=== PATIENT | female | born 1945 | race Caucasian/White ===

== ENCOUNTER 2018-09-10 18:45 | Inpatient (IN) | payer OTHER ==
[~2018-09-10] VITALS: Ht 167.6 cm; Wt 108.9 kg
[2018-09-10 21:11] VITALS: BMI 10.6
[2018-09-10 22:00] VITALS: BP 126/58; PULSE 83; RESP 18
[2018-09-10] MEDS ORDERED: ONDANSETRON 4 MG INJ IV PRN (22:00)
[2018-09-10] MEDS ORDERED: ACETAMINOPHEN 325 MG TAB PO PRN (22:00)
[2018-09-11] VITALS (17 sets, daily range): BP systolic 105–141; BP diastolic 51–66; PULSE 20–95; RESP 11–24; Ht 167.6 cm; Wt 108.9 kg
[2018-09-11] MEDS: DEXTROSE 5%-0.45% NACL 1,000 ML IV SCH ×2 (02:20→12:04)
[2018-09-11] MEDS ORDERED: GLUCAGON 1 MG INJ ONE (07:00)
[2018-09-11] MEDS ORDERED: ACETAMINOPHEN 1000MG/100ML IV 100 ML IVPB STA (07:55)
--- NOTE | 2018-09-11 10:18 | QN ---
Documentation Comment Post cholecystectomy day #3 for acute cholecystitis with empyema of the ga llbladder Bile noted in TIA drain on postoperative day #1 HIDA scan showed intact biliary tree, but with delayed bile leak in the liver bed Patient is transferred here for ERCP She is symptomatically improved somewhat and her TIA drainage is diminishing and less bilious ELOISA SHAW MD Sep 11, 2018 10:18
--- NOTE | 2018-09-11 11:06 | HP ---
DATE OF ADMISSION: 09/10/2018 CHIEF COMPLAINT: Abdominal pain. HISTORY OF PRESENT ILLNESS: A 73-year-old female with a recent history of acute cholecystitis status post laparoscopic cholecystectomy on 09/08/2018 at [facility] returns to the hospital with comp laint of recurrent and persistent right upper quadrant abdominal pain. The TIA drain was still in viola ce. A HIDA scan was performed which showed evidence of bile leak and presence of bile underneath the liver. The patient is transferred to our facility in order to undergo ERCP. She spiked a temperatu re to 102.9 in the morning. PAST MEDICAL HISTORY: 1. History of acute cholecystitis. 2. Moderate obesity. 3. Hypertension. PAST SURGICAL HISTORY: Status post laparoscopic cholecystectomy on 09/08/2018. SOCIAL HISTORY: Patient lives at home. She denies tobacco or alcohol use. PHYSICAL EXAMINATION: GENERAL: Well-developed, well-nourished, obese female who is in mild distress. VITAL SIGNS: Blood pressure 131/60, pulse 80, respiration 18, temperature of 102.2, maximum temperat ure 102.9. HEENT: Extraocular muscles intact. Pupils are equal and reactive to light bilaterally. Sclerae are anicteric. Oropharynx is clear and moist. NECK: Supple, no JVD, no carotid bruits. LUNGS: Clear to auscultation bilaterally. CARDIAC: Regular rate and rhythm. No murmurs, rubs, gallops. ABDOMEN: Soft, obese, right upper quadrant and epigastric tenderness to palpation. TIA drain to cont inuous suction. EXTREMITIES: No clubbing, cyanosis, or edema. NEUROLOGICAL: Grossly nonfocal. ASSESSMENT: 1. A 73-year-old female status post laparoscopic cholecystectomy 2 days prior to admission. 2. Postoperative bile leak. 3. Moderate obesity. 4. Incomplete data. PLAN: 1. Admit to med/surg. 2. N.P.O. 3. Start IV Zosyn. 4. Check CBC and CMP. 5. Dr. Fernández was notified of this admission. 6. GI consultation was requested and case was discussed with Dr. Tovar. The patient will undergo E SECRETARY TO [employer]IONERS. Dictated By: NIMESH MACDONALD/CARRILLO Conf#: [id number] DID#: [id number] CC: DARRYL TOVAR;*EndCC*
[2018-09-11] MEDS: morphine 2 MG INJ IV PRN (12:04)
--- NOTE | 2018-09-11 13:09 | PREAC ---
Date/Time of Note Date/Time of Note DATE: 09/11/18 TIME: 13:07 Anesthesia Eval and Record Evaluation Time Pre-Procedure Interview DATE: 09/11/18 TIME: 13:07 Age 73 Sex female NPO: 8 hrs Preoperative diagnosis cholelithiasis s/p lap cholebile leak Planned procedure ERCP Past Medical History Past Medical History: Includes GI: Obesity Surgery & Anesthesia Issues No known issue Meds Anticoagulation: No Beta Demetrio within 24 hr: No Reason Beta Demetrio not given: Pt. not on B-Demetrio Current Medications Dextrose/Sodium Chloride 1,000 ml @ 75 mls/hr [id number] IV Last administered on 09/11/18at 12:04; Admin Dose 75 MLS/HR; Start 09/10/18 at 22:00 Morphine Sulfate (morphine) 2 mg Q3H PRN IV SEVERE PAIN LEVEL 7-10 Last administered on 09/11/18at 12:04; Admin Dose 2 MG; Start 09/10/18 at 22:00 Ondansetron HCl (Zofran Inj) 4 mg Q4H PRN IV NAUSEA AND/OR VOMITING; Start 09/10/18 at 22:00 Acetaminophen (Tylenol Tab) 650 mg Q4H PRN PO MILD PAIN(1-3)OR ELEVATED TEMP; Start 09/10/18 at 22:00 Piperacillin Sod/ Tazobactam Sod 100 ml @ 200 mls/hr Q8 IVPB ; Start 09/11/18 at 14:00 Meds reviewed: Yes Allergies Coded Allergies: codeine (Verified Allergy, Intermediate, Face edema and erythema, 09/10/18) Allergies Reviewed: Yes Labs/Studies Labs Reviewed: Reviewed by anesthesiologist Result Diagram: 09/11/18 1021 09/11/18 1021 Laboratory Tests 09/11/18 10:21 test: N/A Studies: ECG, CXR Pre-procedure Exam Last vitals Vital Signs Date Temp Pulse Resp B/P (MAP) Pulse Ox O2 O2 Flow FiO2 Time Delivery Rate 09/11/18 98.8 81 18 111/59 95 Room Air 12:52 (76) Airway: Adequate mouth opening Mallampati: Mallampati II Teeth: Normal Lung: Normal Heart: Normal ASA Physical Status ASA physical status: 2 Emergency: None Planned Anesthetic General/MAC: ETT Planned Pain Management Parenteral pain med Pre-operative Attestations Prior to commencing anesthesia and surgery, the patient was re-evaluated, there was verification of: *The patient's identity *The results of appropriate recent lab work and preoperative vital signs *The above evaluation not changing prior to induction *Anesthetic plan, risk benefits, alternative and complications discussed with patient/family; questions answered; patient/family understands, accepts and wishes to proceed. CHE DOMINGUEZ MD Sep 11, 2018 13:09
[2018-09-11] MEDS ORDERED: METOCLOPRAMIDE 10 MG INJ ONE (13:55)
[2018-09-11] MEDS ORDERED: PROPOFOL 20 ML ONE (13:55)
[2018-09-11] MEDS ORDERED: HYDROmorphONE 2 MG/ML SYG ONE (13:55)
[2018-09-11] MEDS ORDERED: ONDANSETRON 4 MG INJ ONE (13:55)
[2018-09-11] MEDS ORDERED: SUCCINYLCHOLINE CHLORIDE 100 MG/5 ML SYG IV ONE (13:55)
[2018-09-11] MEDS ORDERED: MIDAZOLAM 1 MG/ML 2 ML INJ ONE (13:56)
[2018-09-11] MEDS ORDERED: INDOMETHACIN 50 MG SUPP PR ONE (14:00)
[2018-09-11] MEDS: PIPER-TAZO 3.375 GM IV (PMX) 100 ML IVPB SCH ×2 (14:00→22:17)
[2018-09-11] MEDS ORDERED: EPHEDrine 25 MG/5 ML SYG ONE (14:17)
--- NOTE | 2018-09-11 15:25 | OPPN ---
Date/Time of Note Date/Time of Note DATE: 09/11/18 TIME: 15:19 Proc Note GI Procedure Date 09/11/18 Indication: diagnostic, treatment Pre-procedure Diagnosis Bile leak post cholecystectomy. Post-procedure Diagnosis Impression: Deep 1.5 cm duodenal ulcer (incidental finding) Bile leak from liver bed likely Luschka ducts No evidence of cystic stump leak Post sphincterotomy Post placement of [place] 10 9 cm stent Plan: Close observation. PPI therapy. Monitor liver function test. Procedure Performed: ERCP (Plus sphincterotomy plus stent placement) Surgeon DARRYL NG MD See signature line [employer] Contact Printer none Anesthesia Type: general Anesthesiologist: CHE DOMINGUEZ MD Tourniquet Time none EBL none Transfusion required none Biopsy 1: None Grafts/Implants none Tubes/Drains none Complication(s) none Disposition: PACU Procedure Description After informed consent, with the patient/relatives understanding the procedure, its indications, potential risks and complications, including but not limited to: allergic reaction, bleeding, perforation or infection, and after all pertinent questions were answered to the patients satisfaction, the patient/relatives signed witnessed informed consent. Following this, premedication was administered slowly IV push under careful cardiovascular and respiratory monitoring with pulse oximetry, automatic blood pressure, and child monitor. Once the sedative effect was achieved the patient was place in the prone position in the radiology special procedures suite; the side viewing panendoscope was introduced and advanced under visual control. Careful examination of the upper gastrointestinal tract, both on insertion as well as withdrawal of the instrument disclosed the following findings: Esophagus: The mucosa of the entire appears within normal limits. There is no evidence of esophagitis, varices, neoplasm or stricture. No Hiatal Hernia identified. Stomach: Upon entrance to the stomach air was insufflated, the gastric hairston dis tended normally, the mucosa of the fundus, body and antrum of the stomach was carefully examined both head-on and on retroflexion, and shows no abnormalities. There is no evidence of gastritis, ulcers, or neoplasm. Pylorus: The pylorus appears patent and within normal limits, with no evidence of gastric outlet obstruction. Duodenum: There is a 1.5 cm deep duodenal ulcer with no stigmata recent bleeding or visible vessel. The duodenal mucosa was carefully examined in the duodenal bulb as well as the second portion of the duodenum and appears unremarkable with no evidence of duodenitis, ulcer or neoplasm. Ampulla of vater: The ampulla of Vater was identified and carefully examined appearing within normal limits. Cannulation: At this point cannulation was accomplished with the following fluoroscopic findings: Pancreatogram: Normal pancreatogram Cholangiogram: Selective cannulation of the biliary tree was difficult requiring double wire technique. Eventually were successful. A balloon cholangiogram was performed with segmental evaluation. There appears to be a leak in the bed of the liver likely representing Luschka ducts leakage. The cystic stump appears sealed with no leakage. A standard sphincterotomy was performed and an [place] 10-9 cm stent was placed in the right intrahepatic area. Adequate drainage is present at the end of the procedure. The instrument was then withdrawn the patient tolerated the procedure well and was transfer out of the endoscopy suite awake, and in good condition to continue to recover under observation. Copies To: CC: DARRYL NG MD ; DARRYL NG MD Sep 11, 2018 15:25
[2018-09-11] MEDS ORDERED: HYDROmorphONE 1 MG/5 ML IV SYRINGE IV PRN ×3 (15:30)
[2018-09-11] MEDS ORDERED: MEPERIDINE 25 MG INJ IV PRN (15:30)
[2018-09-11] MEDS ORDERED: ONDANSETRON 4 MG INJ IV PRN (15:30)
[2018-09-11] MEDS ORDERED: FENTAnyl 50 MCG/ML VIAL IV PRN ×3 (15:30)
[2018-09-11] MEDS ORDERED: DIPHENHYDRAMINE 50 MG INJ IV PRN (15:30)
--- NOTE | 2018-09-11 15:34 | CONS ---
Assessment/Plan Assessment/Plan Assessment/Plan (Daily) Impression: Bile leak post laparoscopic cholecystectomy. Hypertension. Fever rule out infectious process. Plan: Urgent ERCP with biliary decompression. Consultation Date/Type/Reason Admit Date/Time Sep 10, 2018 at 20:39 Date of Consultation: Sep 11, 2018 Type of Consult Gastroenterology Reason for Consultation Bile leak Date/Time of Note DATE: 09/11/18 TIME: 13:27 Hx of Present Illness 73-year-old female transferred from [facility]. The patient had undergone laparoscopic cholecystectomy for gangrenous cholecystitis. The patient developed persistent pain and significant drainage from TIA drain. A HIDA scan was obtained that showed delayed leak at the bed of the liver. The patient spiked temperature 102.9 this morning. She continues to complain of significant right upper quadrant abdominal pain the area of the TIA drain appears erythemat ous and somewhat indurated suggesting cellulitis. At this point ERCP will be undertaken for diagnosis and therapeutic management with sphincterotomy and stent placement. The patient and her family were informed of the procedure the potential risk complications as well as alternatives and they are agreeable to proceed. Review of Systems: [A 12 system, review was conducted and is negative except as noted in the HPI or here.] Past Medical History Hypertension Medications Current Medications Dextrose/Sodium Chloride 1,000 ml @ 75 mls/hr [id number] IV Last administered on 09/11/18at 12:04; Admin Dose 75 MLS/HR; Start 09/10/18 at 22:00 Morphine Sulfate (morphine) 2 mg Q3H PRN IV SEVERE PAIN LEVEL 7-10 Last administered on 09/11/18at 12:04; Admin Dose 2 MG; Start 09/10/18 at 22:00 Ondansetron HCl (Zofran Inj) 4 mg Q4H PRN IV NAUSEA AND/OR VOMITING; Start 09/10/18 at 22:00 Acetaminophen (Tylenol Tab) 650 mg Q4H PRN PO MILD PAIN(1-3)OR ELEVATED TEMP; Start 09/10/18 at 22:00 Piperacillin Sod/ Tazobactam Sod 100 ml @ 200 mls/hr Q8 IVPB ; Start 09/11/18 at 14:00 Pantoprazole (Protonix Tab) 40 mg BID@06,18 PO ; Start 09/11/18 at 18:00; Status UNV Allergies: Coded Allergies: codeine (Verified Allergy, Intermediate, Face edema and erythema, 09/10/18) Past Surgical History Laparoscopic cholecystectomy 09/07/2018 Family History Significant Family History: no pertinent family hx Social History Alcohol Use: none Smoking Status: Former smoker Drug Use: none Exam/Review of Systems Exam Vitals Vital Signs Date Temp Pulse Resp B/P (MAP) Pulse Ox O2 O2 Flow FiO2 Time Delivery Rate 09/11/18 98.9 13:17 09/11/18 81 18 111/59 95 Room Air 12:52 (76) Intake and Output 09/10/18 09/10/18 09/11/18 1515:00 23:00 07:00 IntakeIntake Total 225 ml BalanceBalance 225 ml Exam PHYSICAL EXAMINATION: GENERAL: Well developed, well nourished, obese, alert & oriented x 3, in mild discomfort, no acute distress SKIN: Edema and induration in the right upper quadrant at site of TIA drain. Fluctuation to suggest abscess. No lesions, no stigmata chronic liver disease, no evidence of bleeding diathesis LYMPHATIC: No palpable lymphadenopathy. HEAD: Normocephalic, atraumatic, no tenderness. EYES: Pupils equal reactive to light and accommodation, full extraocular movements, sclera clear, non-icteric, no discharge. EARS/NOSE AND THROAT: Ears normal, nose normal, oropharynx normal, oral membranes well hydrated without lesions. NECK: Supple, no masses, thyroid normal, JVP within normal limits, carotids normal without bruits. CHEST: Inspection within normal limits. CARDIOVASCULAR: Heart: Regular rate and rhythm, no murmurs, gallops or rubs. Peripheral pulses present within normal limits, no cyanosis, clubbing or edemas. No pulsatile abdominal mass RESPIRATORY: Lungs clear to auscultation and percussion, no wheezing, no rubs GASTROINTESTINAL AND LIVER: Abdomen: Erythema and induration in the right upper quadrant at site of TIA drain. Soft, right upper quadrant tenderness, non- distended, no hernias, no masses, no organomegaly, no ascites, no guarding, no rebound tenderness, normoactive bowel sounds. Rectal: Deferred. GENITOURINARY: [Female genitalia within normal limits.] EXTREMITIES: No cyanosis, clubbing or edema. Results Result Diagram: 09/11/18 1021 09/11/18 1021 Results 24hrs Laboratory Tests Test 09/11/18 10:21 White Blood Count 8.2 Red Blood Count 3.61 L Hemoglobin 11.3 L Hematocrit 32.6 L Mean Corpuscular Volume 90.3 Mean Corpuscular Hemoglobin 31.3 Mean Corpuscular Hemoglobin Concent 34.7 Red Cell Distribution Width 13.2 Platelet Count 199 Mean Platelet Volume 10.2 Immature Granulocytes % 4.900 H Neutrophils % Segmented Neutrophils % (Manual) 47 Band Neutrophils % (Manual) 25 H Lymphocytes % Lymphocytes % (Manual) 13 L Monocytes % Monocytes % (Manual) 7 Eosinophils % Eosinophils % (Manual) 2 Basophils % Basophils % (Manual) 1 Metamyelocytes % (manual) 4 H Myelocytes % (Manual) 2 H Nucleated Red Blood Cells % 0.0 Immature Granulocytes # 0.400 H Neutrophils # Neutrophils # (Manual) 4.0 Band Neutrophils # 2.0 H Lymphocytes (Manual) 1.0 Lymphocytes # Monocytes # Monocytes # (Manual) 0.5 Eosinophils # Basophils # Basophils # (Manual) 0.0 Metamyelocytes # 0.3 H Myelocytes # 0.1 H Nucleated Red Blood Cells # Platelet Estimate NORMAL Giant Platelets 1 H Polychromasia 1+ Poikilocytosis 1+ Sodium Level 137 Potassium Level 3.7 Chloride Level 105 Carbon Dioxide Level 25 Anion Gap 7 Blood Urea Nitrogen 18 Creatinine 0.84 Est Glomerular Filtrat Rate mL/min Glucose Level 118 Calcium Level 7.0 L Total Bilirubin 0.6 Direct Bilirubin 0.00 Indirect Bilirubin 0.6 Aspartate Amino Transf (AST/SGOT) 41 Alanine Aminotransferase (ALT/SGPT) 31 Alkaline Phosphatase 95 Total Protein 4.6 L Albumin 2.3 L Globulin 2.30 Albumin/Globulin Ratio 1.00 Medications Medication Current Medications Dextrose/Sodium Chloride 1,000 ml @ 75 mls/hr [id number] IV Last administered on 09/11/18at 12:04; Admin Dose 75 MLS/HR; Start 09/10/18 at 22:00 Morphine Sulfate (morphine) 2 mg Q3H PRN IV SEVERE PAIN LEVEL 7-10 Last administered on 09/11/18at 12:04; Admin Dose 2 MG; Start 09/10/18 at 22:00 Ondansetron HCl (Zofran Inj) 4 mg Q4H PRN IV NAUSEA AND/OR VOMITING; Start 09/10/18 at 22:00 Acetaminophen (Tylenol Tab) 650 mg Q4H PRN PO MILD PAIN(1-3)OR ELEVATED TEMP; Start 09/10/18 at 22:00 Piperacillin Sod/ Tazobactam Sod 100 ml @ 200 mls/hr Q8 IVPB ; Start 09/11/18 at 14:00 Pantoprazole (Protonix Tab) 40 mg BID@06,18 PO ; Start 09/11/18 at 18:00; Status UNV DARRYL NG MD Sep 11, 2018 15:34
[2018-09-11] MEDS: PANTOPRAZOLE (EC) 40 MG TAB PO SCH (18:14)
[2018-09-12 02:00] VITALS: BP 108/55; PULSE 74; RESP 17
[2018-09-12] MEDS: morphine 2 MG INJ IV PRN ×2 (04:17→09:18)
[2018-09-12] MEDS: PIPER-TAZO 3.375 GM IV (PMX) 100 ML IVPB SCH ×3 (06:04→21:00)
[2018-09-12] MEDS: PANTOPRAZOLE (EC) 40 MG TAB PO SCH ×2 (06:05→17:18)
[2018-09-12] MEDS: DEXTROSE 5%-0.45% NACL 1,000 ML IV SCH ×3 (06:05→21:00)
[2018-09-12 08:00] VITALS: BP 110/59; PULSE 91; RESP 17
[2018-09-12] MEDS ORDERED: PIPE3.374 IVPB (08:42)
[2018-09-12] MEDS ORDERED: PANT40TA4 PO (08:42)
[2018-09-12] MEDS ORDERED: HYDR-4011 PO (08:42)
[2018-09-12] MEDS ORDERED: ACET325T33 PO (08:42)
--- NOTE | 2018-09-12 10:25 | PDOCDIS ---
Discharge Instructions CONDITION [id number] Patient Condition: [id number] Good HOME CARE INSTRUCTIONS: [id number] Diet Instructions: [id number] Regular ACTIVITY: [id number] Activity Restrictions: [id number] No Restrictions FOLLOW UP/APPOINTMENTS Follow-up Plan pcp [address] Tovar [address] Fernández 1 week NIMESH WRIGHT MD Sep 12, 2018 10:25
--- NOTE | 2018-09-12 10:44 | DS ---
DATE OF ADMISSION: 09/10/2018 DATE OF DISCHARGE: 09/12/2018 DISCHARGE DIAGNOSES: 1. A 73-year-old female status poles laparoscopic cholecystectomy, 2 days prior to admission. 2. Postoperative bile leak. 3. Status post ERCP followed by sphincterotomy and biliary stent placement. 4. Deep 1.5 cm duodenal ulcer. 5. Fibromyalgia. 6. Moderate obesity. HOSPITAL COURSE: A 73-year-old female status post laparoscopic cholecystectomy at [facility] on 09/08/2018, returned to the hospital with complaints of recurrent persistent right upper quadrant ab dominal pain. The patient was diagnosed with bile leak, evident on HIDA scan. She was transferred t o our facility. She was seen in consultation by Drs. Shaw and La. The patient underwent ERCP, sphincterotomy, and biliary stent placement, TIA drainage stopped. There was some erythema around th e TIA drain site. The patient was febrile during the initial phase of hospitalization. I started her on Zosyn. Incidentally, a 1.5 cm deep duodenal ulcer was identified during the procedure. The ronel ent was placed on Protonix 40 mg b.i.d. The case was discussed with Dr. Tovar and Dr. Shaw. The patient was cleared for discharge to halfway facility. MEDICATIONS ON DISCHARGE: 1. [place] 5/325 q.4h. p.r.n. 2. Protonix 40 mg b.i.d. 3. Zosyn 3.375 gram IV piggyback q.8h. x5 days. PLAN: 1. Follow up with PCP in 1 week. 2. Follow up with Dr. Tovar. 3. Follow up with Dr. Shaw; call for appointment. Dictated By: NIMESH MACDONALD/NTS Conf#: [id number] DID#: [id number] CC: DARRYL TOVAR; ELOISA SHAW MD;*End*
[2018-09-12 14:00] VITALS: BP 123/60; PULSE 94; RESP 18
[2018-09-12] MEDS: HYDROCODONE/APAP (5/325) TAB PO PRN ×2 (15:13→21:01)
[2018-09-12 19:38] VITALS: BP 113/56; PULSE 84; RESP 20
--- NOTE | 2018-09-12 20:24 | PAC ---
Date/Time of Note Date/Time of Note DATE: 09/12/18 TIME: 23:23 Post-Anesthesia Notes Post-Anesthesia Note Last documented vital signs Vital Signs Date Temp Pulse Resp B/P (MAP) Pulse Ox O2 O2 Flow FiO2 Time Delivery Rate 09/12/18 98.8 15:59 09/12/18 98.8 94 18 123/60 93 Room Air 14:00 (81) 09/11/18 2.0 16:29 Activity: WNL Respiratory function: WNL Cardiovascular function: WNL Mental status: Baseline Pain reasonably controlled: Yes Hydration appropriate: Yes Nausea/Vomiting absent: No CHE DOMINGUEZ MD Sep 12, 2018 20:24
[2018-09-13 02:07] VITALS: BP 115/54; PULSE 75; RESP 18
[2018-09-13] MEDS: HYDROCODONE/APAP (5/325) TAB PO PRN ×3 (02:46→17:03)
[2018-09-13] MEDS: PIPER-TAZO 3.375 GM IV (PMX) 100 ML IVPB SCH ×2 (05:38→13:26)
[2018-09-13] MEDS: PANTOPRAZOLE (EC) 40 MG TAB PO SCH ×2 (05:38→17:03)
[2018-09-13 08:00] VITALS: BP 128/67; PULSE 90; RESP 18
--- NOTE | 2018-09-13 09:36 | QN ---
Documentation Comment Postoperative day #3 No further bleeding through drain site H&H stable x24 hours Cleared for discharge from surgical standpoint. Discharge when cleared by medicine ELOISA SHAW MD Sep 13, 2018 09:36
--- NOTE | 2018-09-13 09:37 | QN ---
Documentation Comment Afebrile for 24 hours Minimal bilious TIA drainage TIA drain removed Slight erythema surrounding TIA entry site Plan: Continue IV antibiotics. Continues warm wet dressing. Should be able to discharge later today. ELOISA SHAW MD Sep 13, 2018 09:37
[2018-09-13] MEDS: DEXTROSE 5%-0.45% NACL 1,000 ML IV SCH (12:09)
[2018-09-13] MEDS ORDERED: BISACODYL 10 MG SUPP PR PRN (13:30)
[2018-09-13] MEDS ORDERED: LACTULOSE 30ML CUP PO PRN (13:30)
[2018-09-13 14:12] VITALS: BP 120/58; PULSE 91; RESP 17
== END 2018-09-13 17:56 | DRG 921 ==
LOC: PP2 20:39
PROVIDERS: ADMIT Internal Medicine; ATTEND Internal Medicine
PROC: 0F758DZ Dilation of Right Hepatic Duct with Intraluminal Device, Via Natural or Artificial Opening Endoscopic (ICD-10-PCS; principal; 2018-09-11 13:30)
DX: T85.590A Other mechanical complication of bile duct prosthesis, initial encounter (principal); M79.7 Fibromyalgia; E66.9 Obesity, unspecified; Z68.38 Body mass index [BMI] 38.0-38.9, adult; Y84.8 Other medical procedures as the cause of abnormal reaction of the patient, or of later complication, without mention of misadventure at the time of the procedure; Y92.019 Unspecified place in single-family (private) house as the place of occurrence of the external cause; Z90.49 Acquired absence of other specified parts of digestive tract; Z87.891 Personal history of nicotine dependence
CPT/HCPCS: 74330; 80053; 80076; 85025; C2617; J0131; J1170; J1610; J2250; J2270; J2405; J2543; J2765; J7042

== ENCOUNTER 2018-09-20 16:26 | Inpatient (IN) | payer OTHER ==
[~2018-09-20] VITALS: Ht 167.6 cm; Wt 111.8 kg
[~2018-09-20 16:26] MED LIST: ACET325T33 PO; HYDR-4011 PO; PANT40TA4 PO; PIPE3.374 IVPB
[2018-09-20] MEDS ORDERED: VANCOMYCIN 1 GM (PMX) 250 ML IVPB STA (16:49)
[2018-09-20] MEDS ORDERED: SODIUM CHLORIDE 0.9% 1L BAG IV* STA (16:49)
[2018-09-20] MEDS ORDERED: PIPER-TAZO 3.375 GM IV (PMX) 100 ML IVPB STA (16:49)
--- NOTE | 2018-09-20 17:07 | ERD ---
ER Documentation Chief Complaint Chief Complaint PT SENT BY PMD FOR EVAL ON ABNORMAL CT, RECENT LAP LIZZIE AUGUST 2018 HPI This is a 73-year-old female who presents to the emergency department brought in by EMS from [facility]. The patient is postop day 10 after undergoing a cholecystectomy for acute cholecystitis with empyema of the gallbladder. The patient had the surgery performed at [facility] by Dr. Fernández. The patient also during her surgery had a TIA drain that was placed and subsequently removed prior to discharge 7 days ago. After cholecystectomy the patient had a suspected bile leak as well has been seen in the TIA drain. Therefore an ERCP was performed by Dr. Karlie avila. The patient had sphincterotomy with stent placement as there appeared to be a leak in the bed of the liver likely representing Luschka ducts leakage. During the procedure the cystic stump appeared sealed with no leakage. A standard sphincterotomy had been performed and a Romanian 10 9 cm stent had been placed into the right intrahepatic area. For the past 48 hours the patient has been complaining of severe abdominal pain. She has remained afebrile. The patient had an outpatient CT scan perf [facility] today at 230 this afternoon roughly 2 hours prior to arrival. This was ordered by the [facility] physicians. The patient was found to have an abnormal finding and subsequently was sent immediately to the emergency department to be further evaluated. The patient states that the abdominal pain is more prominent in the right lower quadrant around the surgical site. The patient states she has had no fever shaking or chills. The abdominal pain is persistent. Is exacerbated with movement. She had a decrease in appetite. She denies any shortness of breath at rest or exertion. She has no chest pain or pressure. ROS All systems reviewed and are negative except as per history of present illness. Medications Home Meds Reported Medications Tuberculin,Purif.prot.deriv. (Tubersol) 5 Tub Unit/0.1 Ml Vial, 5 TUB ID ONCE, VIAL START DATE 09/26/18 AND END DATE 09/26/18 09/20/18 Acetaminophen* (Tylenol*) 325 Mg Tablet, 650 MG PO Q4H PRN for PAIN LEVEL 4- 6/10, TAB 09/20/18 Qriukbwcbocx-Kmgg-Egcpynjv,Iso (ZOSYN* 4.5 GM GALAXY BAG) 4.5 Gm/100 Ml Froz.piggy, 4.5 GM IVPB Q6, EA START DATE 09/16/18 END DATE 09/23/18 09/20/18 Ondansetron Hcl* (Zofran*) 4 Mg Tab, 4 MG PO Q4H PRN for NAUSEA AND OR VOMITING, TAB 09/20/18 Simethicone* (Mylicon*) 80 Mg Tab, 80 MG PO Q4H PRN for DISTENSION/GAS/BLOATING, TAB 09/20/18 Protein Supplement (Promod) 946 Ml Liquid, 30 ML PO TID 09/20/18 Pantoprazole* (Pantoprazole*) 40 Mg Tablet., 40 MG PO AC BREAKFAST DINNER, TAB 09/20/18 Hydrocodone/Acetaminophen ([place] 5-325 Tablet) 1 Each Tablet, 1 EACH PO Q4H PRN for PAIN LEVEL -12/22, TAB 09/20/18 Multivitamin with Minerals (Multivitamins with Minerals) 1 Each Tablet, 1 EACH PO DAILY, TAB 09/20/18 Enoxaparin Sodium* (Lovenox*) 30 Mg/0.3 Ml Disp.syrin, 30 MG SQ BID, SYR 09/20/18 Sodium Phosphate,Griggs-Dibasic (Enema Ready To Use) Unknown Strength Enema, 118 ML RC Q72H, ENEMA 09/20/18 Bisacodyl (Dulcolax) 10 Mg Supp.rect, 10 MG RC Q24H, SUPP.RECT 09/20/18 Magnesium Hydroxide* (Milk Of Magnesia*) 400 Mg/5 Ml Oral.susp, 30 ML PO Q24H for CONSTIPATION, ML 09/20/18 Discontinued Scripts Hydrocodone/Acetaminophen ([place] 5-325 Tablet) 1 Each Tablet, 1 EACH PO Q4 for 5 Days, TAB Prov:NIMESH WRIGHT MD 09/12/18 Pantoprazole* (Pantoprazole*) 40 Mg Tablet., 40 MG PO BID@06,18 for 60 Days Prov:NIMESH WRIGHT MD 09/12/18 Acetaminophen* (Tylenol*) 325 Mg Tablet, 650 MG PO Q4H PRN for MILD PAIN(1-3)OR ELEVATED TEMP for 10 Days, TAB Prov:NIMESH WRIGHT MD 09/12/18 Gstytmfupnoq-Xjaz-Ddcnfodw,Iso (ZOSYN 3.375 GM GALAXY BAG) 3.375 Gm/50 Ml Froz. piggy, 3.375 GM IVPB Q8 for 5 Days, EA Prov:NIMESH WRIGHT MD 09/12/18 Allergies Allergies: Coded Allergies: codeine (Verified Allergy, Intermediate, Face edema and erythema, 09/20/18) PMhx/Soc History of Surgery: Yes (cholecystectomy, appendectomy, eye surgery) Anesthesia Reaction: No Hx Neurological Disorder: Yes (neuropathy) Hx Respiratory Disorders: Yes (pneumonia) Hx Cardiac Disorders: No Hx Psychiatric Problems: Yes (depression) Hx Miscellaneous Medical Probl: No Hx Alcohol Use: Yes (socially) Hx Substance Use: No Hx Tobacco Use: No Physical Exam Vitals Vital Signs Date Temp Pulse Resp B/P (MAP) Pulse Ox O2 O2 Flow FiO2 Time Delivery Rate 09/20/18 99.7 81 18 96/63 (74) 100 Room Air 17:36 09/20/18 Nasal 2 17:20 Cannula 09/20/18 99.7 87 18 96/63 (74) 96 16:52 Physical Exam Constitutional:Well-developed. Well-nourished. HEENT:Normocephalic. Atraumatic.Pupils were equal round reactive to light.. Dry mucous membranes. Very poor oral dentitionNo tonsillar exudates. Neck: No nuchal rigidity. No lymphadenopathy. No posterior cervical spine t enderness or step-offs. Respiratory: Not using accessory muscles of respiration.Lungs were clear to auscultation bilaterally. No rhonchi. No rales. No wheezing. Cardiovascular: Regular rate regular rhythm.No murmurs. No rubs were appreciated.S1, S2 normal. Distal pulses are palpable 2+ bilaterally. GI: Abdomen was obese. Bowel sounds normal. Erythremia warmth and tenderness extending from the right upper quadrant ostomy site to the right lower quadrant and no involvement of the flank region region. No subcutaneous emphysema, no fluctuance, no induration. Significant purulent drainage coming from the right upper quadrant operative site or previous TIA drain had been removed. Surgical ji present below the sternum, above the umbilicus and to the left of the right upper quadrant ostomy site. All surgical ji were clean dry and intact with no surrounding erythremia. Muscle skeletal: No asymmetrical calf tenderness or swelling. Muscular strength 2 out of 5 of the lower and upper extremities. Skin: No petechia, no purpura. No lesions on the palms or the soles of the feet. No maculopapular rash. NEURO: Patient was alert, awake, orientated x3. Gait not observed Result Diagram: 09/20/18 1716 09/20/18 1716 Results 24 hrs Laboratory Tests Test 09/20/18 17:06 09/20/18 17:16 POC Venous Lactate 1.2 mmol/L White Blood Count 11.8 10^3/ul Red Blood Count 2.94 10^6/ul Hemoglobin 9.3 g/dl Hematocrit 27.4 % Mean Corpuscular Volume 93.2 fl Mean Corpuscular Hemoglobin 31.6 pg Mean Corpuscular Hemoglobin Concent 33.9 g/dl Red Cell Distribution Width 14.1 % Platelet Count 380 10^3/UL Mean Platelet Volume 9.8 fl Immature Granulocytes % 5.200 % Neutrophils % % Segmented Neutrophils % (Manual) 67 % Band Neutrophils % (Manual) 13 % Lymphocytes % % Lymphocytes % (Manual) 8 % Monocytes % % Monocytes % (Manual) 4 % Eosinophils % % Basophils % % Basophils % (Manual) 1 % Metamyelocytes % (manual) 3 % Myelocytes % (Manual) 4 % Nucleated Red Blood Cells % 0.2 /100WBC Immature Granulocytes # 0.610 10^3/ul Neutrophils # 10^3/ul Neutrophils # (Manual) 8.1 10^3/ul Band Neutrophils # 1.5 10^3/ul Lymphocytes (Manual) 0.9 10^3/ul Lymphocytes # 10^3/ul Monocytes # 10^3/ul Monocytes # (Manual) 0.4 10^3/ul Eosinophils # 10^3/ul Basophils # 10^3/ul Basophils # (Manual) 0.1 10^3/ul Metamyelocytes # 0.3 10^3/ul Myelocytes # 0.4 10^3/ul Nucleated Red Blood Cells # 10^3/ul Platelet Estimate NORMAL Giant Platelets 1 % Polychromasia 1+ Poikilocytosis 1+ Prothrombin Time 17.5 Sec Prothrombin Time Ratio 1.4 INR International Normalized Ratio 1.42 Activated Partial Thromboplast Time 37.0 Sec Sodium Level 138 mmol/L Potassium Level 3.1 mmol/L Chloride Level 106 mmol/L Carbon Dioxide Level 25 mmol/L Anion Gap 7 Blood Urea Nitrogen 18 mg/dl Creatinine 0.79 mg/dl Est Glomerular Filtrat Rate mL/min mL/min Glucose Level 119 mg/dl Calcium Level 7.9 mg/dl Total Bilirubin 0.4 mg/dl Direct Bilirubin 0.00 mg/dl Indirect Bilirubin 0.4 mg/dl Aspartate Amino Transf (AST/SGOT) 81 IU/L Alanine Aminotransferase (ALT/SGPT) 56 IU/L Alkaline Phosphatase 149 IU/L Troponin I < 0.012 ng/ml Total Protein 5.9 g/dl Albumin 2.6 g/dl Globulin 3.30 g/dl Albumin/Globulin Ratio 0.78 Amylase Level 93 U/L Lipase 254 U/L Current Medications Medications Dose Sig/Valentina Start Time Status Last (Trade) Ordered Route PRN Stop Time Admin Dose Reason Admin Sodium 3,000 ml BOLUS OVER 2 09/20/18 DC 09/20/18 Chloride HOURS STAT 16:49 09/20/18 17:15 (NS) IV* 16:51 Vancomycin 250 ml @ ONCE STAT 09/20/18 DC 09/20/18 HCl 125 mls/hr IVPB 16:49 09/20/18 17:50 18:48 Piperacillin 100 ml @ ONCE STAT 09/20/18 DC 09/20/18 Sod/ 200 mls/hr IVPB 16:49 09/20/18 17:15 Tazobactam 17:18 Sod Ondansetron 4 mg ER BRIDGE 09/20/18 HCl (Zofran PRN IV 18:30 Inj) NAUSEA/VOMITI 09/21/18 18:29 NG 650 mg ER BRIDGE 09/20/18 Acetaminophen PRN PO 18:30 (Tylenol .MILD PAIN 09/21/18 18:29 Tab) 1-3 OR TEMP 1,000 ml @ Q10H IV 09/20/18 UNV Dextrose/Sodi 100 mls/hr 18:30 um Chloride Piperacillin 100 ml @ Q8 IVPB 09/20/18 UNV Sod/ 200 mls/hr 22:00 Tazobactam Sod Vancomycin VANCOMYCIN PER 09/20/18 UNV HCl (Vanco PER PHARMACY PROTOCOL XX 18:30 Iv Per Pharmacy) Ondansetron 4 mg Q4 PRN IV 09/20/18 UNV HCl (Zofran nausea 18:30 Inj) Morphine 2 mg Q3 PRN IV 09/20/18 UNV Sulfate mod pain 18:30 (morphine) IV Flush 10 ml STK-MED 09/20/18 DC (NS 10 ml) ONCE .ROUTE 18:29 09/20/18 18:30 Sodium 100 ml @ ud STK-MED 09/20/18 DC Chloride ONCE .ROUTE 18:29 09/20/18 18:30 Iohexol 150 ml STK-MED 09/20/18 DC (Omnipaque ONCE .ROUTE 18:29 09/20/18 300mg/ ml) 18:30 Fentanyl 50 mcg ONCE ONCE 09/20/18 DC 09/20/18 (Sublimaze) IV 19:00 09/20/18 18:54 19:01 Procedures/MDM This is a 73-year-old female presented to the emergency department postop day 10 status post cholecystectomy and ERCP. The patient had a significant amount of purulent drainage coming from the ostomy site which appeared to be a postoperative infection as the surrounding skin of the abdomen was also showing signs of cellulitis. The patient immediately was placed in a ship painter helper continuous pulse oximetry and IV access was established by nursing staff. The patient did not have sirs criteria but I was concerned for high risk of sepsis and therefore obtained a lactic acid blood cultures and immediately started the patient on antibiotics which included vancomycin and Zosyn. 12 Lead EKG tracing ordered and reviewed by myself showed: Normal sinus rhythm of 86 bpm and no arrhythmia. ME interval normal. QRS duration normal. No ST segment elevation No ST segment depression. No changes consistent with acute ischemia. I was able to speak with the surgeon Dr. Fernández. CT scan was not repeated at this time given that he had [place] received a report from the radiologist. There was concern of a postoperative infection. The patient had mild leukocytosis. There is no evidence of sepsis. Pain was controlled with IV fentanyl. The patient had no changes in her mental status. At this time the patient will be started on IV antibiotics as stated above. She was made n.p.o. She will be admitted to the renal physician Dr. Wright to undergo further surgical evaluation. Critical Care: Time: 80 minutes Treatments/Evaluations: Close monitoring and treatment of unstable vital signs, cardiorespiratory, and neurologic status, while maintaining tight balance of fluid, respiratory, and cardiac interventions. Time does not include performing any of the above billable procedures. Departure Diagnosis: Primary Impression: Postoperative intra-abdominal abscess Condition: Serious MALKA MOLINA MD 9, 2019 17:07
[2018-09-20] MEDS ORDERED: BISA10SU55 RC (17:27)
[2018-09-20] MEDS ORDERED: MAGN400O19 PO (17:27)
[2018-09-20] MEDS ORDERED: NA P133E39 RC (17:28)
[2018-09-20] MEDS ORDERED: ENOX30DI10 SQ (17:28)
[2018-09-20] MEDS ORDERED: MULT-105 PO (17:29)
[2018-09-20] MEDS ORDERED: HYDR-4011 PO (17:30)
[2018-09-20] MEDS ORDERED: PANT40TA4 PO (17:30)
[2018-09-20] MEDS ORDERED: PROT946L PO (17:31)
[2018-09-20] MEDS ORDERED: ONDA4TAB13 PO (17:32)
[2018-09-20] MEDS ORDERED: SIME80TA60 PO (17:32)
[2018-09-20] MEDS ORDERED: PIPE4.5F2 IVPB (17:35)
[2018-09-20] MEDS ORDERED: ACET325T33 PO (17:36)
[2018-09-20] MEDS ORDERED: TUBE5VIA3 ID (17:37)
[2018-09-20] MEDS ORDERED: IOHEXOL 300MG/ML 150 ML BTL ONE (18:29)
[2018-09-20] MEDS ORDERED: SOD CHLORIDE 0.9% 100 ML ONE (18:29)
[2018-09-20] MEDS ORDERED: ACETAMINOPHEN 325 MG TAB PO PRN (18:30)
[2018-09-20] MEDS ORDERED: ONDANSETRON 4 MG INJ IV PRN ×2 (18:30)
[2018-09-20] MEDS ORDERED: morphine 2 MG INJ IV PRN (18:30)
[2018-09-20] MEDS ORDERED: VANCOMYCIN IV PER PHARMACY XX SCH (18:30)
[2018-09-20] MEDS ORDERED: FENTAnyl 50 MCG/ML VIAL IV ONE ×2 (19:00→21:30)
[2018-09-20 22:10] VITALS: BP 127/60; PULSE 83; RESP 18
[2018-09-20] MEDS ORDERED: VANCOMYCIN 1 GM 250 ML IVPB SCH (23:30)
[2018-09-20] MEDS: PIPER-TAZO 3.375 GM IV (PMX) 100 ML IVPB SCH (23:43)
[2018-09-21 00:03] VITALS: BP 140/63; PULSE 83; RESP 19
[2018-09-21 00:28] VITALS: Ht 167.6 cm; Wt 111.8 kg
[2018-09-21 02:00] VITALS: BP 137/60; PULSE 91; RESP 18
[2018-09-21] MEDS: POTASSIUM CHLORIDE 30 MEQ in DEXTROSE 5%-0.9% NACL 1,000 ML IV SCH ×3 (02:23→13:27)
[2018-09-21] MEDS: PIPER-TAZO 3.375 GM IV (PMX) 100 ML IVPB SCH ×3 (06:22→20:25)
[2018-09-21 08:08] VITALS: BP 126/59; PULSE 84; RESP 19
[2018-09-21 11:37] VITALS: BP 147/67; PULSE 92; RESP 18
--- NOTE | 2018-09-21 11:49 | HP ---
DATE OF ADMISSION: 09/20/2018 CHIEF COMPLAINT: Right-sided abdominal pain. HISTORY OF PRESENT ILLNESS: A 73-year-old moderately obese female, status post laparoscopic cholecys tectomy more than 10 days prior to admission, followed by bile leak and biliary stent placement, was transferred to [facility] following ERCP. The patient developed a righ t-sided abdominal pain. The TIA drain had remained in place and removed 7 days prior to discharge. T he patient reported persistent right-sided abdominal pain. CAT scan of the abdomen and pelvis showed necrotizing abscess collection along the abdominal wall. The patient reports persistent right-sided abdominal pain and no fevers or chills. No nausea or vomiting. Dr. Shaw was notified of this adm ission. PAST MEDICAL HISTORY: 1. History of acute cholecystitis. 2. History of postoperative bile leak. 3. Status post ERCP and biliary stent placement. MEDICATIONS PRIOR TO ADMISSION: 1. Tylenol. 2. Zosyn. 3. Zofran. 4. Protonix. 5. [place]. 6. Lovenox. ALLERGIES: THE PATIENT IS ALLERGIC TO CODEINE. PAST SURGICAL HISTORY: Status post cholecystectomy 10 days prior to admission and status post append ectomy. SOCIAL HISTORY: The patient was residing at [facility] prior to admiss ion. She denies tobacco or alcohol use. PHYSICAL EXAMINATION: GENERAL: Well-developed, well-nourished, obese female, who is in no apparent distress. VITAL SIGNS: Stable. She is afebrile. HEENT: Extraocular muscles intact. Pupils are equal and reactive to light bilaterally. Sclerae are anicteric. Oropharynx is clear and moist. NECK: Supple, no JVD, no carotid bruits. LUNGS: Decreased breath sounds at bases. CARDIAC: Regular rate and rhythm. No murmurs, rubs or gallops. ABDOMEN: Soft, right-sided tenderness. There is erythema involving the right upper quadrant. Surgi rashad ji present below the rib on the right side. EXTREMITIES: No clubbing, cyanosis, or edema. NEUROLOGICAL: Grossly nonfocal. LABORATORY DATA: White blood cell count 9000, hemoglobin 9.1, platelet count 363,000. Sodium 141, p otassium 3.2, chloride 112, bicarbonate 23, BUN 13, creatinine 0.64. Total bilirubin is 0.3, AST 68, ALT 60, alkaline phosphatase 121, albumin is reduced at 2. ASSESSMENT: 1. A 73-year-old female with a right-sided intra-abdominal abscess collection. 2. Status post laparoscopic cholecystectomy 10 days prior to admission. 3. History of postoperative bile leakage, status post ERCP and biliary stent placement. 4. Malnutrition of severe degree. 5. Hypokalemia. PLAN: 1. Admit to med/surg, keep the patient n.p.o., Continue IV Zosyn and vancomycin. 2. Wound culture. 3. IV fluid hydration. 4. Pain control. 5. Dr. Shaw and Dr. Tovar were notified of this admission. Dictated By: NIMESH WRIGHT MD SK/NTS Conf#: [id number] DID#: [id number] CC: ELOISA SHAW MD; DARRYL TOVAR;*End*
[2018-09-21] MEDS: VANCOMYCIN 1 GM 250 ML IVPB SCH ×2 (12:34→23:20)
[2018-09-21] MEDS: KETOROLAC 15 MG INJ IV PRN ×2 (12:38→23:20)
[2018-09-21 15:18] VITALS: BP 143/65; RESP 18
--- NOTE | 2018-09-21 16:57 | CONS ---
Assessment/Plan Assessment/Plan Assessment/Plan (Daily) We will further assess the right upper quadrant with an MRCP Since main problem with inability to eat with facial and oral rash will need to be addressed Consultation Date/Type/Reason Admit Date/Time Sep 20, 2018 at 18:09 Initial Consult Date Type of Consult General surgery Reason for Consultation Bile leak status post cholecystectomy Date/Time of Note DATE: 09/21/18 TIME: 16:51 24 HR Interval Summary Free Text/Dictation Patient is-year-old female who is over 10 days status post laparoscopic cholecystectomy for acute cholecystitis with empyema. On the first postoperative day she was noted to have biliary drainage through the TIA drain. She was transferred to [facility] were on the second postoperative day patient underwent an ERCP with stent placement. She was found to have some biliary drainage in the liver bed. Her TIA drainage diminished dramatically and was able to be removed prior to discharge. As an outpatient over the last week the patient has been unable to eat and is developed sores on her face and mouth. Also she has developed tenderness in the right upper quadrant. An outpatient CT yesterday suggested cellulitis and possible fasciitis of the right upper quadrant. She has been afebrile and has had no abdominal pain since admission. Her mild leukocytosis has resolved. Her main complaint at the present time is the oral rash which has been eating for the patient and possible over the Constitutional: other (As in the HPI) Exam/Review of Systems Exam Vitals Vital Signs Date Temp Pulse Resp B/P (MAP) Pulse Ox O2 O2 Flow FiO2 Time Delivery Rate 09/21/18 98.1 18 143/65 92 15:18 (91) 09/21/18 92 11:37 09/20/18 Room Air 21:29 09/20/18 2 17:20 Intake and Output 09/20/18 09/20/18 09/21/18 1515:00 23:00 07:00 IntakeIntake Total 0 ml BalanceBalance 0 ml Constitutional: alert, oriented Psych: no complaints Eyes: nl conjunctiva ENMT: nl external ears & nose, other (There is a facial rash which is non- erythematous occupying her left face there is a rash occupying the gums above and below) Neck: supple Respiratory: clear to auscultation Cardiovascular: regular rate and rhythm Gastrointestinal: soft, other (There is a minimal area of erythema in the right upper quadrant with slight bilious drainage. It is markedly improved since previous examination) Musculoskeletal: nl extremities to inspection Extremities: normal pulses Neurological: ISOTOPE HYDROLOGIST II-XII intact Results Result Diagram: 09/21/18 0559 09/21/18 0559 Results 24hrs Laboratory Tests Test 09/20/18 17:06 09/20/18 17:16 09/20/18 19:38 09/20/18 20:50 POC Venous Lactate 1.2 White Blood Count 11.8 #H Red Blood Count 2.94 L Hemoglobin 9.3 L Hematocrit 27.4 L Mean Corpuscular Volume 93.2 Mean Corpuscular 31.6 Hemoglobin Mean Corpuscular 33.9 Hemoglobin Concent Red Cell Distribution 14.1 Width Platelet Count 380 # Mean Platelet Volume 9.8 Immature Granulocytes % 5.200 H Neutrophils % Segmented Neutrophils 67 % (Manual) Band Neutrophils % 13 H (Manual) Lymphocytes % Lymphocytes % (Manual) 8 L Monocytes % Monocytes % (Manual) 4 Eosinophils % Basophils % Basophils % (Manual) 1 Metamyelocytes % 3 H (manual) Myelocytes % (Manual) 4 H Nucleated Red Blood 0.2 H Cells % Immature Granulocytes # 0.610 H Neutrophils # Neutrophils # (Manual) 8.1 H Band Neutrophils # 1.5 H Lymphocytes (Manual) 0.9 Lymphocytes # Monocytes # Monocytes # (Manual) 0.4 Eosinophils # Basophils # Basophils # (Manual) 0.1 H Metamyelocytes # 0.3 H Myelocytes # 0.4 H Nucleated Red Blood Cells # Platelet Estimate NORMAL Giant Platelets 1 H Polychromasia 1+ Poikilocytosis 1+ Prothrombin Time 17.5 H Prothrombin Time Ratio 1.4 INR International 1.42 Normalized Ratio Activated 37.0 H Partial Thromboplast Time Sodium Level 138 Potassium Level 3.1 L Chloride Level 106 Carbon Dioxide Level 25 Anion Gap 7 Blood Urea Nitrogen 18 Creatinine 0.79 Est Glomerular Filtrat Rate mL/min Glucose Level 119 Calcium Level 7.9 L Total Bilirubin 0.4 Direct Bilirubin 0.00 Indirect Bilirubin 0.4 Aspartate Amino 81 H Transf (AST/SGOT) Alanine 56 Aminotransferase (ALT/S GPT) Alkaline Phosphatase 149 H Troponin I < 0.012 Total Protein 5.9 L Albumin 2.6 L Globulin 3.30 H Albumin/Globulin Ratio 0.78 Amylase Level 93 Lipase 254 Lactic Acid Level 1.1 1.2 Test 09/21/18 05:59 White Blood Count 9.0 # Red Blood Count 2.90 L Hemoglobin 9.1 L Hematocrit 27.1 L Mean Corpuscular Volume 93.4 Mean Corpuscular 31.4 Hemoglobin Mean Corpuscular 33.6 Hemoglobin Concent Red Cell Distribution 14.1 Width Platelet Count 363 Mean Platelet Volume 9.6 Immature Granulocytes % 5.500 H Neutrophils % Segmented Neutrophils 48 % (Manual) Band Neutrophils % 32 H (Manual) Lymphocytes % Lymphocytes % (Manual) 15 Monocytes % Monocytes % (Manual) 2 Eosinophils % Basophils % Basophils % (Manual) 1 Myelocytes % (Manual) 1 H Promyelocytes % 1 H (Manual) Nucleated Red Blood 0.0 Cells % Immature Granulocytes # 0.500 H Neutrophils # Neutrophils # (Manual) 4.6 Band Neutrophils # 2.8 H Lymphocytes (Manual) 1.3 Lymphocytes # Monocytes # Monocytes # (Manual) 0.1 L Eosinophils # Basophils # Basophils # (Manual) 0.0 Myelocytes # 0.0 Promyelocytes # 0.0 Nucleated Red Blood Cells # Platelet Estimate NORMAL Sodium Level 141 Potassium Level 3.2 L Chloride Level 112 H Carbon Dioxide Level 23 Anion Gap 6 Blood Urea Nitrogen 13 Creatinine 0.64 Est Glomerular Filtrat Rate mL/min Glucose Level 108 Calcium Level 7.3 L Total Bilirubin 0.3 Direct Bilirubin 0.00 Indirect Bilirubin 0.3 Aspartate Amino 68 H Transf (AST/SGOT) Alanine 60 Aminotransferase (ALT/S GPT) Alkaline Phosphatase 121 Total Protein 4.7 #L Albumin 2.0 L Medications Medication Current Medications Potassium Chloride 30 meq/ Dextrose/Sodium Chloride 1,015 ml @ 100 mls/hr Q10H9M IV Last administered on 09/21/18at 13:27; Admin Dose 100 MLS/HR; Start 09/20/18 at 22:00 Piperacillin Sod/ Tazobactam Sod 100 ml @ 200 mls/hr Q8 IVPB Last administered on 09/21/18at 14:05; Admin Dose 200 MLS/HR; Start 09/20/18 at 23:30 Vancomycin HCl (Vanco Iv Per Pharmacy) VANCOMYCIN PER PHARMACY PER PROTOCOL XX ; Start 09/20/18 at 18:30 Ondansetron HCl (Zofran Inj) 4 mg Q4H PRN IV nausea; Start 09/20/18 at 18:30 Vancomycin HCl 250 ml @ 125 mls/hr Q12H IVPB Last administered on 09/21/18at 12:34; Admin Dose 125 MLS/HR; Start 09/21/18 at 12:00 Ketorolac Tromethamine (Toradol) 15 mg Q6H PRN IV PAIN Last administered on 09/21/18at 12:38; Admin Dose 15 MG; Start 09/21/18 at 11:30; Stop 09/24/18 at 11:29 Miscellaneous Information (*Rx Drug Level Order Reminder*) VANCO TROUGH @ 1,100 ON... 1100 ONCE XX ; Start 09/22/18 at 11:00; Stop 09/22/18 at 11:01 ELOISA SHAW MD Sep 21, 2018 16:57
[2018-09-21 20:12] VITALS: BP 180/79; PULSE 91; RESP 20
[2018-09-22 00:05] VITALS: BP 141/63; PULSE 88; RESP 18
[2018-09-22] MEDS: POTASSIUM CHLORIDE 30 MEQ in DEXTROSE 5%-0.9% NACL 1,000 ML IV SCH ×3 (02:44→18:08)
[2018-09-22 04:11] VITALS: BP 127/58; PULSE 88; RESP 18
[2018-09-22] MEDS: PIPER-TAZO 3.375 GM IV (PMX) 100 ML IVPB SCH ×3 (05:01→23:06)
[2018-09-22] MEDS: KETOROLAC 15 MG INJ IV PRN ×2 (05:32→11:03)
[2018-09-22 07:11] VITALS: BP 129/61; PULSE 77; RESP 19
--- NOTE | 2018-09-22 09:19 | QN ---
Documentation Comment Afebrile throughout No abdominal complaints Still has difficulty eating because of oral and facial rash Plan: Awaiting follow-up MRCP ELOISA SHAW MD Sep 22, 2018 09:19
[2018-09-22 11:23] VITALS: BP 141/65; PULSE 81; RESP 18
--- NOTE | 2018-09-22 11:52 | PN ---
Date/Time of Note Date/Time of Note DATE: 09/22/18 TIME: 11:50 Subjective Denies any abdominal pain, nausea, or vomiting. Has poor appetite Objective Vitals Vital Signs Date Temp Pulse Resp B/P (MAP) Pulse Ox O2 O2 Flow FiO2 Time Delivery Rate 09/22/18 97.8 81 18 141/65 94 11:23 (90) 09/20/18 Room Air 21:29 09/20/18 2 17:20 Intake and Output 09/21/18 09/21/18 09/22/18 1414:59 22:59 06:59 IntakeIntake Total 460 ml 960 ml OutputOutput Total 151 ml BalanceBalance 309 ml 960 ml Ulcerations noted around the mouth Neck supple Lungs clear to auscultation bilaterally Regular rate and rhythm Soft nontender nondistended normoactive bowel sounds Bilateral hand edema Nonfocal Results Result Diagram: 09/22/18 0710 09/22/18 0710 Medications Medications Current Medications Potassium Chloride 30 meq/ Dextrose/Sodium Chloride 1,015 ml @ 100 mls/hr Q10H9M IV Last administered on 09/22/18at 02:44; Admin Dose 100 MLS/HR; Start 09/20/18 at 22:00 Piperacillin Sod/ Tazobactam Sod 100 ml @ 200 mls/hr Q8 IVPB Last administered on 09/22/18at 05:01; Admin Dose 200 MLS/HR; Start 09/20/18 at 23:30 Vancomycin HCl (Vanco Iv Per Pharmacy) VANCOMYCIN PER PHARMACY PER PROTOCOL XX ; Start 09/20/18 at 18:30 Ondansetron HCl (Zofran Inj) 4 mg Q4H PRN IV nausea; Start 09/20/18 at 18:30 Vancomycin HCl 250 ml @ 125 mls/hr Q12H IVPB Last administered on 09/21/18at 23:20; Admin Dose 125 MLS/HR; Start 09/21/18 at 12:00 Ketorolac Tromethamine (Toradol) 15 mg Q6H PRN IV PAIN Last administered on 09/22/18at 11:03; Admin Dose 15 MG; Start 09/21/18 at 11:30; Stop 09/24/18 at 11:29 VTE Prophylaxis Risk score (from Nsg)>0 risk: 7 SCD applied (from Nsg): Yes Lines/Catheters IV Catheter Type: Saline Lock Dur[place] in Place: No Assessment/Plan Assessment/Plan 73-year-old female status post laparoscopy cholecystectomy 10 days prior to admission Postoperative bile leak, status post biliary stent placement Intra-abdominal fluid collection with no need for surgical intervention Oral ulcerations Malnutrition of severe degree Await MRCP Continue current therapy including nutritional supplement Discharge planning to SNF if MRCP is normal NIMESH WRIGHT MD Sep 22, 2018 11:52
[2018-09-22] MEDS: VANCOMYCIN 1 GM 250 ML IVPB SCH (12:09)
[2018-09-22 15:36] VITALS: BP 139/78; PULSE 70; RESP 19
[2018-09-22] MEDS ORDERED: ARTIFICIAL TEARS 15 ML OPH BOTH EYES PRN (18:30)
[2018-09-22] MEDS ORDERED: LORAZEPAM 2 MG INJ IV ONE ×2 (19:17→22:30)
[2018-09-22 19:31] VITALS: BP 133/73; PULSE 84; RESP 17
[2018-09-23] MEDS: VANCOMYCIN 1 GM 250 ML IVPB SCH ×2 (00:06→12:10)
[2018-09-23] MEDS: POTASSIUM CHLORIDE 30 MEQ in DEXTROSE 5%-0.9% NACL 1,000 ML IV SCH ×2 (00:45→09:07)
[2018-09-23 01:19] VITALS: BP 135/75; PULSE 81; RESP 17
[2018-09-23 04:35] VITALS: BP 149/79; PULSE 84; RESP 17
[2018-09-23] MEDS: PIPER-TAZO 3.375 GM IV (PMX) 100 ML IVPB SCH ×2 (05:53→15:15)
[2018-09-23 07:36] VITALS: BP 146/73; PULSE 91; RESP 18
[2018-09-23] MEDS: KETOROLAC 15 MG INJ IV PRN (09:04)
[2018-09-23 11:12] VITALS: BP 139/78; PULSE 68; RESP 18
--- NOTE | 2018-09-23 11:28 | DS ---
DATE OF ADMISSION: 09/20/2018 DATE OF DISCHARGE: DISCHARGE DIAGNOSES: 1. A 73-year-old female who is status post laparoscopic cholecystectomy 10 days prior to admission. 2. Obstructive leakage, status post ERCP and biliary stent placement during last admission. 3. Intra-abdominal fluid collection with no need for surgical intervention. 4. Oral ulcerations, most likely herpes zoster, slowly improving. 5. Malnutrition of severe degree. 6. Moderate obesity. HOSPITAL COURSE: A 73-year-old female status post laparoscopic cholecystectomy 10 days prior to admi ssion was referred to emergency room after a repeat CAT scan of the abdomen and pelvis showed fluid c ollection and subcutaneous intraabdominal wall edema. There was no associated fever or leukocytosis. The patient was evaluated by Dr. Shaw. There was no need for any surgical intervention. MRCP wa s nondiagnostic due to artifact throughout the central abdomen. Extensive edema was noted blood in t he subcutaneous soft tissue of the lateral aspect of the abdomen. The case was discussed with Dr. Jyotsna gallegos. She feels like patient is slowly improving. The patient had ulcerative lesions around her mouth that were quite painful. I believe this was herp es zoster and slowly resolving. The patient has malnutrition of moderate to severe degree. I encour aged her to eat as much as possible. She was placed on a soft diet and nutritional supplements were also ordered. The patient is in a stable condition for transition back to senior living facility. She will follo w up with PCP and Dr. Shaw as outpatient. Dictated By: NIMESH MACDONALD/CARRILLO Conf#: [id number] DID#: [id number] CC: ELOISA SHAW MD;*[facility]*
[2018-09-23] MEDS ORDERED: VANC1PLA10 IV (11:41)
--- NOTE | 2018-09-23 15:17 | QN ---
Documentation Comment Afebrile throughout Leukocytosis resolved Less erythema and induration of the right abdomen Plan: We will need to continue IV antibiotics. Place continuous warm wet compress to right upper quadrant abdomen ELOISA SHAW MD Sep 23, 2018 15:17
[2018-09-23 15:30] VITALS: BP 131/68; PULSE 89; RESP 16
--- NOTE | 2018-09-29 03:33 | DS ---
DATE OF ADMISSION: 09/20/2018 DATE OF DISCHARGE: 09/23/2018 DISCHARGE DIAGNOSES: 1. A 73-year-old female status post laparoscopic cholecystectomy 10 days prior to admission. 2. Postoperative bile leak, status post biliary stent placement. 3. Intra-abdominal fluid collection. 4. Oral ulceration, most likely herpes zoster. 5. Malnutrition of severe degree. HOSPITAL COURSE: A 73-year-old female status post laparoscopic cholecystectomy 10 days prior to admi ssion followed by bile leak, underwent biliary stent placement during last admission. The patient wa s noted to have abdominal discomfort. A CAT scan of the abdomen and pelvis obtained as outpatient fall ggested fluid collection, possible abscess. Following admission to our facility, patient was evaluated by Dr. Fernández. There was no need for any surgical intervention. Abdominal exam was unremarkable. There was no leukocytosis at the time of di scharge. The patient was afebrile throughout her hospitalization. MRCP was recommended. This was n ondiagnostic due to artifact obscuring the structure of the central upper abdomen. There was e xtensive edema noted throughout the subcutaneous soft tissue of the lateral aspect of the abdomen. T he wound culture grew MRSA. The patient was discharged back to nursing home facility on IV vancom ycin for a period of 10 days. The patient had oral ulcerated lesions with difficulty eating. I attributed the ulcerations to possi ble hepatic lesions. Plan of care was discussed with her on several occasions. The patient was discharged to nursing home facility. I encouraged her to eat as much as possible and continue with protein supplements. The patient will follow up with Dr. Fernández as outpatient. Dictated By: NIMEHS MACDONALD/CARRILLO Conf#: [id number] DID#: [id number]
== END 2018-09-23 17:07 | DRG 862 ==
LOC: E/R 16:26 → TEL 18:09 → CANRESERV 19:21 → TEL 09-22 16:40
PROVIDERS: ADMIT Internal Medicine; ATTEND Internal Medicine
DX: T81.43XA Infection following a procedure, organ and space surgical site, initial encounter (principal); E43 Unspecified severe protein-calorie malnutrition; K65.1 Peritoneal abscess; E87.6 Hypokalemia; E66.9 Obesity, unspecified; Z68.39 Body mass index [BMI] 39.0-39.9, adult; B02.9 Zoster without complications; B95.62 Methicillin resistant Staphylococcus aureus infection as the cause of diseases classified elsewhere
CPT/HCPCS: 74181; 80048; 80053; 80076; 80202; 82150; 83605; 83690; 84484; 85025; 85610; 85730; 87070; 87081; 93005; 96365; 96375; J1885; J2060; J2270; J2543; J3010; J3370; J3480; J7030; J7042; Q9967